=== PATIENT | female | born 1985 | race American Indian/Alaskan Native ===

== ENCOUNTER 2018-12-11 16:41 | Emergency (ER) | payer OTHER, BC ==
[2018-12-11 16:56] VITALS: BP 142/88
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
--- NOTE | 2018-12-11 18:38 | Cat Scan Report ---
PROCEDURE: CT LUMBAR SPINE WO CON TECHNIQUE: CT lumbar spine without contrast HISTORY: back pain/injury COMPARISONS: FINDINGS: Vertebral bodies are normal in height and alignment. Disc spaces appear within normal limits. The fac et joints demonstrate normal alignment. Spinous and transverse processes are intact. SI joints are un remarkable. IMPRESSION: Negative CT lumbar spine. This document is electronically signed by Linwood Burkett MD., December 11 2018 06:36:19 PM ET
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
[2018-12-11] MEDS ORDERED: IBUPROFEN PO ONE (19:13)
[2018-12-11] MEDS ORDERED: FLEXERIL PO ONE (19:13)
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
== END 2018-12-11 19:32 | disposition home or self-care (01) ==
LOC: ED 16:41
DX: M54.5 Low back pain (principal); M54.2 Cervicalgia; M79.10 Myalgia, unspecified site; V89.2XXA Person injured in unspecified motor-vehicle accident, traffic, initial encounter; Y93.89 Activity, other specified; Y92.488 Other paved roadways as the place of occurrence of the external cause; Y99.8 Other external cause status
CPT/HCPCS: 72125; 72131; 99284

== ENCOUNTER 2021-10-12 17:13 | Emergency (ER) | payer BC ==
[2021-10-12 17:41] VITALS: BP 133/70
== END 2021-10-12 20:19 | disposition left against medical advice (07) ==
LOC: ED 17:13
DX: Z04.1 Encounter for examination and observation following transport accident (principal); Z53.21 Procedure and treatment not carried out due to patient leaving prior to being seen by health care provider; V89.2XXA Person injured in unspecified motor-vehicle accident, traffic, initial encounter; Y93.89 Activity, other specified; Y92.89 Other specified places as the place of occurrence of the external cause; Y99.8 Other external cause status